=== PATIENT | male | born 2000 | race Two or more races ===

== ENCOUNTER → 2019-09-12 | Emergency (ER) | payer SELFPAY ==
[~2019-09-12] VITALS: Ht 165.1 cm; Wt 59.0 kg
[~2019-09-12] MED LIST: PREDNISONE20 MG ORAL
--- NOTE | 2019-09-12 01:29 | NUR ---
ED Nurse Note: Patient walked in to ED c/o SOB x2 days. Has hx of asthma. Pt has been using inhaler at home but no relief. Covid test done last 09/06/19, tested negative. 94% on room air. Afebrile. VSS.
[2019-09-12 01:32] VITALS: BP 136/82
--- NOTE | 2019-09-12 01:48 | Emergency Room Report ---
History of Present Illness General Chief Complaint: Dyspnea/Respdistress Source: Patient Present Illness HPI This a 19-year-old male with a history of asthma. He presents with chief complaint of shortness of breath. Is been on and off issue for the last week or so but worse in the last couple days. No fever chills. He has a cough but no productive sputum. He is using his inhaler he said is not helping much. No sick contact. He had COVID testing done on September 05 and was negative. Allergies: Coded Allergies: PENICILLINS (Verified Allergy, Unknown, 09/12/19) Uncoded Allergies: PENICILLIN (Allergy, Unknown, 09/12/19) COVID-19 Screening Contact w/high risk pt: No Recent Travel to affected area: No Experienced COVID-19 symptoms?: Yes COVID-19 symptoms experienced: Shortness of Breath COVID-19 Testing performed THIRD HAND: Yes COVID-19 Screening: Negative COVID-19 COVID-19 Testing Source: [facility] Patient History Past Medical History: see triage record, old chart reviewed, asthma Past Surgical History: none Pertinent Family History: none Social History: Denies: smoking Immunizations: other Reviewed Nursing Documentation: PMH: Agreed; PSxH: Agreed Nursing Documentation-PMH Hx Asthma: Yes Review of Systems Eye: Denies: eye pain, blurred vision ENT: Denies: ear pain, nose congestion, throat swelling Respiratory: Reports: cough, shortness of breath Cardiovascular: Denies: chest pain, palpitations Gastrointestinal: Denies: abdominal pain, diarrhea, nausea, vomiting Musculoskeletal: Denies: back pain, joint pain Skin: Denies: rash Neurological: Denies: headache, numbness Endocrine: Denies: increased thirst, increased urine Hematologic/Lymphatic: Denies: easy bruising All Other Systems: negative except mentioned in HPI Physical Exam Vital Signs Date Time Temp Pulse Resp B/P (MAP) Pulse Ox O2 Delivery O2 Flow Rate FiO2 09/12/19 01:23 98.1 104 19 136/82 (100) 94 Room Air Vitals normal Sp02 EP Interpretation: reviewed, normal General Appearance: well appearing, no apparent distress, alert Head: normocephalic, atraumatic Eyes: bilateral eye PERRL, bilateral eye EOMI ENT: hearing grossly normal, normal pharynx Neck: full range of motion, supple, no meningismus Respiratory: chest non-tender, lungs clear, normal breath sounds Cardiovascular #1: regular rate, rhythm, no murmur Gastrointestinal: normal bowel sounds, non tender, no mass, no organomegaly, no bruit, non-distended Musculoskeletal: back normal, normal range of motion, gait/station normal Psychiatric: mood/affect normal Medical Decision Making Diagnostic Impression: Primary Impression: Dyspnea Qualified Codes: R06.00 - Dyspnea, unspecified Additional Impression: Asthma Qualified Codes: J45.909 - Unspecified asthma, uncomplicated ER Course Patient presents with dyspnea. He looks well. Not hypoxic. Lungs are clear. No wheezing. Because of the COVID pandemic, will send a call with testing. I will also place him on prednisone for his asthma. No evidence of pneumonia, ACS , PE, dissection to name a few. This patient was evaluated in the context of the global COVID-19 pandemic, which necessitated consideration that the patient might be at risk for infection with the [id number] virus that causes COVID-19. Institutional protocols and algorithms that pertain to the evaluation of patients at risk for COVID-19 and the state of rapid change based on information released by multiple regulatory bodies including the CDC and federal and state organizations. These policies and algorithms were followed during the patient' s care in the ED. Chest X-Ray Diagnostic Results Chest X-Ray Diagnostic Results : Chest X-Ray Ordered: Yes # of Views/Limited/Complete: 1 View Indication: Shortness of Breath EP Interpretation: Yes Interpretation: no consolidation, no effusion, no pneumothorax, no acute cardiopulmonary disease Impression: No acute disease Electronically Signed by: Miki Cormier MD Last Vital Signs Date Time Temp Pulse Resp B/P (MAP) Pulse Ox O2 Delivery O2 Flow Rate FiO2 09/12/19 01:32 98.1 104 19 136/82 94 Room Air Status: improved Disposition: HOME, SELF-CARE Condition: Stable Scripts Prednisone* (PREDNISONE*) 20 Mg Tablet 40 MG ORAL DAILY, #8 TAB Prov: Miki Cormier MD 09/12/19 Referrals: NON PHYSICIAN (PCP) Patient Instructions: Shortness of Breath, [id number] Additional Instructions: Follow-up with your doctor in 7 days. Return if symptoms worsen. A COVID test was done. Someone will call you with results in 2 to 5 days. If you do not hear back, call here for results. Miki Cormier MD Sep 12, 2019 01:48
[2019-09-12 02:07] VITALS: BP 136/82
--- NOTE | 2019-09-12 02:07 | NUR ---
ED Nurse Note: Pt cleared by ERMD for discharge. DC instructions/prescription was given and explained to pt and verbalized understanding of teachings. All medical deviecs such as ID band removed. Pt is AAO x4, ambulatory and left with all personal belongings.
--- NOTE | 2019-09-12 02:31 | Diagnostic Imaging Report ---
EXAM: XR Chest, 1 View CLINICAL HISTORY: SOB TECHNIQUE: Frontal view of the chest. COMPARISON: No relevant prior studies available. FINDINGS: Lungs: No consolidation or mass. Pleural space: No acute findings Heart: No cardiomegaly. Bones/joints: No acute findings. IMPRESSION: No acute cardiopulmonary process.
--- NOTE | 2019-09-14 09:38 | NUR ---
COVID-19 TEST NEGATIVE . PATIENT HAS BEEN NOTIFIED ABOUT THE RESULTS
== END | disposition home or self-care (01) ==
LOC: EMR 01:41
DX: R06.00 Dyspnea, unspecified (principal); J45.909 Unspecified asthma, uncomplicated; Z88.0 Allergy status to penicillin
CPT/HCPCS: 71045; 99283; J7512